=== PATIENT | male | born 1995 | race Caucasian/White ===

== ENCOUNTER 2017-01-31 11:45 | Emergency (ER) | payer BC, OTHER ==
[~2017-01-31] VITALS: Ht 182.9 cm; Wt 81.3 kg
[2017-01-31 11:50] VITALS: TEMP 36.7; Ht 182.9 cm; Wt 81.3 kg
[2017-01-31] MEDS ORDERED: BUPIVACAINE 0.5 % 5 MG/1 ML MPF 30ML VIAL INFIL STA (12:12)
[2017-01-31] MEDS ORDERED: XYLOCAINE 1%/SOD BICARB 20 ML VIAL INFIL STA (12:12)
--- NOTE | 2017-01-31 12:38 | DIAGNOSTIC IMAGING REPORT ---
RIGHT THIRD FINGER 3 VIEWS CLINICAL HISTORY: Laceration. FINDINGS: 3 views of the right third finger are obtained. No prior studies are available for comparison at the time of dictation. The skeletal structures are well mineralized. No fracture is seen. The third metacarpophalangeal and interphalangeal joints are well-maintained. There is evidence of laceration with soft tissue edema in the tip of the third digit. No radiodense foreign body is identified. IMPRESSION: 1. No fracture is seen in the right third finger. 2. Laceration and soft tissue edema are present in the tip of the third digit. No radiodense foreign body is seen. Electronically signed by: Jossue Han M.D. 01/31/2017 12:37 PM Dictated Date/Time: 01/31/2017 12:35 PM
[2017-01-31 13:45] VITALS: BP 140/86; PULSE 79; O2SAT 98
[2017-01-31] MEDS ORDERED: CEPHALEXIN MONOHYDRATE 250 MG CAP PO STA (13:49)
--- NOTE | 2017-01-31 13:49 | EMERGENCY ROOM VISIT NOTE ---
ED Visit Note First contact with patient: 12:05 Chief Complaint: "Laceration, right middle finger". History of Present Illness: This patient is a 21-year-old male who presents to the Emergency Department via private vehicle for evaluation of their right middle finger laceration. Patient sustained the laceration while attempting to operate sharp knife while at work, specifically at [employer]. . They report a moderate amount of bleeding initially. They deny any numbness or tingling into the distal extremity. They report no decreased range of motion of the affected digit. The patient states that he initially went to [facility], who referred him here. The injury occurred around 10:45 AM today. He states that he was chopping cooked chicken. He is left-handed. He rates his current pain as a 0/10. Patient's Tetanus status is currently up-to-date. Medications: None Allergies: None PMH: No pertinent past medical history. SHx: Patient is employed locally. ROS: All pertinent positive and negative review of systems are appropriately documented in the History of Present Illness. Physical Exam: VITAL SIGNS - Vital signs and nursing notes were reviewed. Patient is afebrile , blood pressure 148/81, non-tachycardic and is saturating on room air 99%. GENERAL -21-year-old male appearing his stated age who is in no acute distress. Communicates well with provider and answers questions appropriately. SKIN - There is a 2 cm long laceration noted distal most aspect of the right third digit, extending to the finger pad, distally and dorsally through the lateral edge of the fingernail of the same digit. The edges gape apart with traction. No foreign bodies appreciated. Upon further examination there are no deep structures including vessel, tendon, or bony structures appreciated. There is minimal bleeding noted. MUSCULOSKELETAL - Laceration as described above. +5/5 strength appreciated of the affected digit. Full range of motion of the affected digit. NEUROLOGIC -neurovascularly intact in the affected digit. VASCULAR - Capillary refill was brisk. IMAGING: RIGHT THIRD FINGER 3 VIEWS CLINICAL HISTORY: Laceration. FINDINGS: 3 views of the right third finger are obtained. No prior studies are available for comparison at the time of dictation. The skeletal structures are well mineralized. No fracture is seen. The third metacarpophalangeal and interphalangeal joints are well-maintained. There is evidence of laceration with soft tissue edema in the tip of the third digit. No radiodense foreign body is identified. IMPRESSION: 1. No fracture is seen in the right third finger. 2. Laceration and soft tissue edema are present in the tip of the third digit. No radiodense foreign body is seen. Electronically signed by: Jossue Han M.D. 01/31/2017 12:37 PM Dictated Date/Time: 01/31/2017 12:35 PM ED Course: Patient was seen and evaluated by myself. X-ray was obtained to rule out fracture. Risks and benefits of performing primary wound closure versus no repair were discussed with the patient who verbalizes understanding. Verbal consent was obtained prior to performing the procedure. 5 cc of 50/50 1% buffered lidocaine and 0.5 percent. Again was used to perform a digital block of the right third digit. The wound was cleansed and prepped in the typical sterile fashion utilizing normal saline and Betadine. The wound was sterilely draped. Once proper anesthetization was established, the wound was further examined and demonstrated a laceration through the nail into the nail bed extending to the finger pad. The wound was copiously irrigated with normal saline and Betadine. The wound was closed using 5 simple, 5-0 nylon sutures with the wound edges being well approximated. One of the sutures was through the nail, to repair the nail and the nail bed. A tourniquet was used to control bleeding and was removed after. He Tolerated the procedure well. No complications were met. The wound was cleansed and dressed with a Bacitracin dressing. A metal splint was applied to the finger for comfort. Patient educated on worrisome symptoms for return visit to the Emergency Department. He will be discharged home on a short-term prescription for Keflex to help prevent infection. Patient discharged to home in good condition. In the evaluation and treatment of this patient, the following differential diagnoses were considered: Finger Fracture, Finger Dislocation, Finger Sprain, Finger Contusion, Jersey Finger, or Mallet Finger. Current/Historical Medications Scheduled Cephalexin Monohydrate (Keflex), 500 MG PO TID Allergies Coded Allergies: No Known Allergies (Unverified , 01/31/17) Vital Signs Date Time Temp Pulse Resp B/P Pulse Ox O2 Delivery O2 Flow Rate FiO2 01/31/17 13:45 79 16 140/86 98 Room Air 01/31/17 11:50 36.7 73 18 148/81 99 Room Air Medications Administered Medications (Trade) Dose Ordered Sig/Gabriel Route Start Time Stop Time Status Last Admin Dose Admin Cephalexin Monohydrate (Keflex Cap) 500 mg NOW STAT PO 01/31/17 13:49 01/31/17 13:50 DC 01/31/17 13:55 500 MG Departure Information Impression Primary Impression: Laceration Dispostion Home / Self-Care Condition GOOD Prescriptions Cephalexin Monohydrate (KEFLEX) 500 Mg Cap 500 MG PO TID, #20 CAP Prov: Guillaume Augustine PA-C 01/31/17 Referrals Gerardo Rios D.O. (PCP) Patient Instructions My [facility] Additional Instructions Discharge Instructions: You have received 5 sutures on your ringer. These sutures are NOT dissolvable and WILL need to be removed by a health care provider in 14 days. You can return to the Emergency Department or contact your Primary Care Provider to have the sutures removed. Please wear the splint for comfort until the sutures are removed. Please notify your employer of this work-related injury. Please also follow-up with Workmen's Compensation regarding this injury. You have been prescribed Keflex. This is an antibiotic. This is one tablet every 8 hours for 7 days. Please fill this at your pharmacy. Proper wound care is essential for adequate wound healing and infection prevention. You can shower and clean the wound with soap and water. Do not scour over the wound, pat dry with a towel. Do not submerse the wound (i.e. bathe or dish wash) until the sutures have been removed. You can use an antibiotic ointment with a dressing over the wound for the next 3-4 days. After this time you may leave the wound dry and open to the air. If crust develops over the wound you can use a Q-tip to apply a 1:1 peroxide:water solution to clean the wound. Look for signs of infection of the wound including: increased pain, swelling, foul discharge, streaking, or increased temperature. If any of these are noticed you should return to the Emergency Department for further assessment and treatment. As with any laceration you may have received nerve damage to the surrounding tissues. This damage may or may not be permanent. You should keep the area covered with sunscreen for the first 6 months to 1 year when at risk for exposure to help minimize scarring. You can also use scar reducing creams or Vitamin E oil to help minimize scarring. For pain control, you can use the following [id number] medicines (if >12 yo): - Regular strength (325mg/tab) Tylenol (acetaminophen) 2 tabs every 4-6 hours as needed. Do not exceed 12 tablets in a 24 hour period. Avoid taking more than 3 grams (3000 mg) of Tylenol per day. This includes any other sources of acetaminophen you may take on a regular basis. - Regular strength (200 mg/tab) Advil (ibuprofen) 1-2 tabs every 4-6 hours as needed. Do not exceed a dose of 3200 mg per day. Return to the emergency department if your symptoms worsen despite treatment course outlined above.
[2017-01-31] MEDS ORDERED: CEPH500C2 PO (14:02)
== END 2017-01-31 14:11 | disposition home or self-care (01) ==
LOC: C.EDB 11:49 → C.EDC 14:11
DX: S61.212A Laceration without foreign body of right middle finger without damage to nail, initial encounter (principal); W26.0XXA Contact with knife, initial encounter; Y92.89 Other specified places as the place of occurrence of the external cause; Y99.0 Civilian activity done for income or pay